=== PATIENT | female | born 1990 | race Caucasian/White ===

== ENCOUNTER 2018-10-15 22:21 | Emergency (ER) | payer OTHER ==
[~2018-10-15] VITALS: Ht 172.7 cm; Wt 77.1 kg
[2018-10-15 22:28] VITALS: BP_SYST 105
[2018-10-15] MEDS ORDERED: LORazepam 1 MG TABLET PO ONE (23:15)
[2018-10-16] MEDS ORDERED: LORazepam 1 MG TABLET PO ONE
[2018-10-16 00:46] VITALS: BP_SYST 105
== END 2018-10-16 00:46 | disposition home or self-care (01) ==
LOC: SED 22:21
DX: F41.0 Panic disorder [episodic paroxysmal anxiety] (principal); R06.4 Hyperventilation
CPT/HCPCS: 99284